=== PATIENT | male | born 1975 | race Caucasian/White ===

== ENCOUNTER 2024-08-18 16:12 | Emergency (ER) | payer SELFPAY ==
[2024-08-18 16:24] VITALS: BP 143/85
[2024-08-18] MEDS: MOTRIN 600 MG PO (17:27)
--- NOTE | 2024-08-18 17:28 | ED.GENMED ---
History of Present Illness
General
Chief Complaint: Musculo-Skeletal Complaint
Source: patient
Exam Limitations: none
Time Seen by Provider: 08/18/24 17:14
History of Present Illness
History of Present Illness:
Patient was chasing a suspect felt a pop in his left posterior leg. No other injury or complaint. No distal numbness tingling or weakness.
Past History
Past History
ED Past Medical History: HTN (Questionable)
ED Past Surgical History: Orthopedic
Social History
Tobacco: Non-smoker
Phy Exam
Physical Exam
Physical Exam:
General: Nontoxic appearing in no distress
Skin: Warm and dry, no rash
Neuro: Alert, nontoxic, grossly nonfocal
Psychiatric: Good eye contact and appropriate
Musculoskeletal: Able to ambulate with slight limp. Able to bear full weight. Left knee normal. Left ankle normal. Good color. Calf nontender. No cord. Knee is stable. Tenderness to the posterior mid thigh. Increased pain with knee flexion.
Course
Orders/Labs/Results
Orders:
Orders
08/18/24 17:20
Ibuprofen [Motrin] 600 mg PO NOW STA
Femur, Left 2 View [CR Femur - Left Min 2 Vw] Urgent
Comment:
Reason For Exam: Posterior thigh pain
08/18/24 17:53
Marc Wrap Left-Treatment ONCE
Vital Signs
Initial and Last Documented VS:
Initial Vital Signs
Temp Pulse Resp Pulse Ox
98.7 F 94 18 97
08/18/24 16:17 08/18/24 16:17 08/18/24 16:17 08/18/24 16:17
Last Documented Vital Signs
Temp Pulse Resp BP Pulse Ox
98.7 F 94 18 143/85 97
08/18/24 16:17 08/18/24 16:17 08/18/24 16:17 08/18/24 16:24 08/18/24 16:17
MDM/Problems Addressed
Differential Diagnosis Includes:
History and physical all consistent with a hamstring tear. Motor or sensory neurovascular intact. X-ray done for completeness. Anti-inflammatories Marc wrap and follow-up with occupational health
*Radiology
Radiology exam reviewed: preliminary read by ED provider (Negative x-ray)
*Pulse Oximetry
Patient hypoxic: no (97%)
*Critical Care Note
Total Time (30-74mins, 75-104mins- exclusive of procedures): Not Applicable
Update Note
Update Note:
All consistent with a hamstring tear. Ice elevation rest wrap follow-up with occupational health
ED Attending Note
-
Portions of this chart may have been created with voice recognition software.� Occasional wrong word or��sound alike� substitutions may have occurred due to the inherent limitations of voice recognition software.
Discharge Plan
Departure
Patient Disposition: Home (Routine Discharge)
Date of Disposition: 08/18/24
Time of Disposition: 17:56
Patient with high blood pressure during this ER visit?: Yes
Discharge Problem:
Left hamstring tear
Instructions: Hamstring Muscle Strain (DC), BLOOD PRESSURE
Prescriptions:
No Action
metoprolol succinate [Toprol XL] 25 mg tablet extended release 24 hr
25 mg PO DAILY Qty: 30 0RF
Stand Alone Forms: Return to Work
Activity Restrictions/Additional Instructions:
Ice
Marc wrap
Advil or Motrin for pain
Close follow-up with occupational health. Call first thing Wednesday morning
Interventions
Interventions:
*Risk Screen - Suicide Last Done: 08/18/24 16:19
*General Assessment Last Done: 08/18/24 16:19
*Neglect/Abuse Screening Last Done: 08/18/24 16:19
ED-Musculoskeletal Assessment Last Done: 08/18/24 17:20
Discharge Date and Time
Print Language: SLOVENIAN
== END 2024-08-18 18:16 | disposition home or self-care (01) ==
LOC: EMR 16:12
PROVIDERS: EMERGENCY PHYSICIAN Emergency Medicine; FAMILY PHYSICIAN Family Medicine
DX: S76.312A Strain of muscle, fascia and tendon of the posterior muscle group at thigh level, left thigh, initial encounter (principal); X58.XXXA Exposure to other specified factors, initial encounter; I10 Essential (primary) hypertension
CPT/HCPCS: 99283; 73552